=== PATIENT | male | born 1975 | race Caucasian/White ===

== ENCOUNTER 2017-01-06 21:20 | Emergency (ER) | payer OTHER ==
[~2017-01-06] VITALS: Ht 177.8 cm; Wt 84.0 kg
[~2017-01-06 21:20] MED LIST: CEPH500C3 PO; PROT40TA PO; TRAZ150T75 PO; VENL75 PO
[2017-01-06 21:37] VITALS: BP 104/68; PULSE 90; RESP 16; TEMP 98.3; O2SAT 96
--- NOTE | 2017-01-06 21:58 | PD ---
HPI Chief Complaint: Alcohol/Drug Intoxication Time Seen by Provider: 21:48 Travel History International Travel<30 days: No Contact w/Intl Traveler<30days: No Traveled to known affect area: No History of Present Illness HPI 41 YO M with PMH of chronic alcoholism presents to the ED under [facility] from [facility] after being found wandering and intoxicated. On presentation the patient denies somatic complaints. He denies SI or HI. He states that his drinking just "got out of hand" tonight. Denies illicit drug use. Endorses smoking cigarettes. PFSH Past Medical History Arthritis: No Asthma: No Autoimmune Disease: No Blood Disorders: No Anxiety: Yes ([facility] and nursing home. Counseling. Missed court appearance, etc.) Depression: Yes Heart Rhythm Problems: No Cancer: No Cardiovascular Problems: No High Cholesterol: No Chemotherapy: No Chest Pain: No Congestive Heart Failure: No COPD: No Cerebrovascular Accident: No Diabetes: No Diminished Hearing: No Endocrine: No Gastrointestinal Disorders: Yes (Has shaking hands after stomach cramps even when not drinking. ) GERD: No Glaucoma: No Genitourinary: No Headaches: No Hepatitis: No Hiatal Hernia: No Hypertension: No Immune Disorder: No Implanted Vascular Access Dvce: No Kidney Stones: No Musculoskeletal: No Neurologic: No Psychiatric: No Reproductive: No Respiratory: No Integumentary: Yes Migraines: Yes Myocardial Infarction: No Radiation Therapy: No Renal Failure: No Seizures: No Sickle Cell Disease: No Sleep Apnea: No Thyroid Disease: No Ulcer: No Past Surgical History Surgical History: No Previous Surgery Abdominal Surgery: No AICD: No Appendectomy: No Arteriovenous Shunt: No Cardiac Surgery: No Cholecystectomy: No Ear Surgery: No Endocrine Surgery: No Eye Surgery: No Genitourinary Surgery: No Gynecologic Surgery: No Insulin Pump: No Joint Replacement: No Neurologic Surgery: No Oral Surgery: No Pacemaker: No Thoracic Surgery: No Other Surgery: No Social History Alcohol Use: Yes (AT LEAST 1 BOTTLE VODKA PER DAY) Tobacco Use: Yes Substance Use: Yes Allergies-Medications (Allergen,Severity, Reaction): Coded Allergies: No Known Allergies (Verified , 01/06/17) Reported Meds & Prescriptions Reported Meds & Active Scripts Active Review of Systems ROS Limitations: Intoxication Except as stated in HPI: all other systems reviewed are Neg Physical Exam Exam Limitations: Intoxication Narrative GENERAL: Well-nourished, well-developed intoxicated white male in NAD. SKIN: Focused skin assessment warm/dry. Tattoos. HEAD: Normocephalic. Atraumatic. EYES: No scleral icterus. No injection or drainage. PERRLA. NECK: Supple, trachea midline. No JVD or lymphadenopathy. CARDIOVASCULAR: Regular rate and rhythm without murmurs, gallops, or rubs. RESPIRATORY: Breath sounds clear and equal bilaterally. No accessory muscle use. GASTROINTESTINAL: Abdomen soft, non-tender, nondistended. Active bowel sounds. MUSCULOSKELETAL: No cyanosis, or edema. Moves the extremities spontaneously. BACK: Nontender without obvious deformity. No CVA tenderness. Data Data Last Documented VS Vital Signs Date Time Temp Pulse Resp B/P Pulse Ox O2 Delivery O2 Flow Rate FiO2 01/06/17 21:37 98.3 90 16 104/68 96 MDM Medical Decision Making Medical Screen Exam Complete: Yes Emergency Medical Condition: Yes Differential Diagnosis acute alcohol intoxication verus chronic alcoholism versus alcohol withdrawal versus other Narrative Course 41 YO M presents to the ED under [facility] from [facility] after being found wandering and intoxicated. On presentation the patient denies somatic complaints. He denies SI or HI. He states that his drinking just "got out of hand" tonight. Denies illicit drug use. Endorses smoking cigarettes. Vitals reviewed. Patient is somnolent but arouses easily to touch. He is appropriately responsive and protecting his airway. No evidence of trauma. He' ll be allowed to sleep it off and reevaluated for clinical sobriety before discharge. Diagnosis Primary Impression: Acute alcohol intoxication Qualified Code: F10.920 - Acute alcohol intoxication, uncomplicated Additional Impression: Chronic alcohol dependence, continuous Referrals: [facility] (Out patient) Additional Instructions: Seek outpatient treatment for chronic alcoholism. Return to the ED for any urgent or emergent medical condition. Disposition: 01 DISCHARGE HOME Condition: Stable Sejal Mendez Jan 06, 2017 21:57
[2017-01-07] VITALS: BP 112/74; PULSE 72; RESP 16; O2SAT 97
[2017-01-07 04:00] VITALS: BP 114/70; PULSE 76; RESP 16; O2SAT 96
== END 2017-01-07 07:37 | disposition home or self-care (01) ==
LOC: NEPD 21:20
DX: F10.220 Alcohol dependence with intoxication, uncomplicated (principal); F17.210 Nicotine dependence, cigarettes, uncomplicated
CPT/HCPCS: 99282